=== PATIENT | female | born 1970 | race Caucasian/White ===

== ENCOUNTER 2017-05-23 14:52 | Emergency (ER) | payer OTHER ==
--- NOTE | ~2017-05-23 | CR72 ---
[facility] A Service [facility] RADIOLOGY TEXT RESULTS PATIENT: TISH GRIER LOCATION: SED : 70 UNIT #: [id number] AGE: [address]: Erik Mejia MD SEX: F ORDER DR: [id number] [place] [id number] E MR#: [id number] Acc #: [id number] NAME: TISH GRIER : 1970 SEX: F STUDY DATE/TIME: 05/23/2017 17:11 UNIT: SED ROOM: STUDY DESCRIPTION: CR Chest Single View Portable Attending Physician: Erik Mejia M.D. Ordering Physician: Erik Mejia M.D. Primary Care Physician: Claudia Bolanos M.D. MEDICAL IMAGING REPORT This report is preliminary unless electronic signature is present. EXAM Portable chest x-ray 05/23/2017. HISTORY Short of air. Claims something moving around inside abdomen, left upper side times couple weeks, left side chest lower something moving around. TECHNIQUE AP radiograph of the chest is presented. COMPARISON Comparison 12/04/2016. FINDINGS The bony structures are unremarkable. The heart and mediastinum are normal in size and contour. The lungs are well inflated bilaterally. There is no evidence of acute infectious or inflammatory disease. No pleural effusion or pneumothorax. No suspicious nodule. Some minimal linear scarring or atelectasis bilateral lower lung zones. Appearance of lungs not significantly changed from November 2015. Dictated by... Raheem Jimenez M.D. THIS IS AN ELECTRONICALLY VERIFIED REPORT Raheem Jimenez M.D. at 05/25/2017 2:44 PM MARKOK/madina TD: 05/24/2017 12:22 JOB #: [id number] MEDICAL IMAGING REPORT [facility] A Service [facility] RADIOLOGY TEXT RESULTS PATIENT: TISH GRIER LOCATION: SED : 70 UNIT #: [id number] AGE: [address]: Erik Mejia MD SEX: F ORDER DR: Page 1 of 1
--- NOTE | ~2017-05-23 | CT4 ---
[facility] A Service of [facility] RADIOLOGY TEXT RESULTS PATIENT: TISH GRIER LOCATION: SED : [birth year] UNIT #: [id number] AGE: [address]: Erik Mejia MD SEX: F ORDER DR: [id number] [address] [address] [id number] E MR#: [id number] Acc #: [id number] NAME: TISH GRIER : 1970 SEX: F STUDY DATE/TIME: 05/23/2017 17:13 UNIT: SED ROOM: STUDY DESCRIPTION: CT Abd and Pelv Wo Cont Attending Physician: Erik Mejia M.D. Ordering Physician: Erik Mejia M.D. Primary Care Physician: Claudia Bolanos M.D. MEDICAL IMAGING REPORT This report is preliminary unless electronic signature is present. EXAM CT abdomen and pelvis. HISTORY Claims "something moving around" inside abdomen, left upper side times couple weeks, left side chest lower "something moving around". TECHNIQUE CT of the abdomen and pelvis performed with administration of oral, but not intravascular contrast. Study limited in the absence of intravascular contrast. This CT exam was performed with one or more of the following radiation dose reduction techniques: automatic exposure control, adjustment of mA and/or kV according to patient size, and iterative reconstruction. FINDINGS Emphysema lung bases. Inferior heart and pericardium unremarkable. Multifocal subcentimeter hypodense foci in the liver. Both lobes are involved. Largest of these is in segment 6, measuring about 8 mm in diameter. Favored to be multiple small cysts. No clearly suspicious hepatic parenchymal abnormality is seen. The gallbladder is unremarkable. There is no biliary ductal dilatation. Spleen, pancreas, adrenal glands unremarkable. 4.3-cm right upper pole renal cyst. Kidneys, ureters, urinary bladder otherwise unremarkable. CT PELVIS: No inguinal adenopathy. Status post hysterectomy. No suspicious adnexal findings. No free fluid in the pelvis. No pelvic or retroperitoneal adenopathy. Distal esophagus, stomach, small bowel unremarkable. Appendix normal. The colon shows no acute abnormality. The aorta is normal in caliber. Bony structures show no acute-appearing abnormality. IMPRESSION [facility] A Service of [facility] RADIOLOGY TEXT RESULTS PATIENT: TISH GRIER LOCATION: SED : 70 UNIT #: [id number] AGE: [address]: Erik Mejia MD SEX: F ORDER DR: 1. There is no clearly acute abnormality seen in the abdomen or pelvis. 2. Emphysema in lung bases. 3. Multifocal subcentimeter hypodensities in the liver, largest measuring about 8 mm. Most consistent with multiple hepatic cysts. No clearly suspicious hepatic parenchymal abnormality is seen. 4. Right upper pole renal cyst measuring 4.3 cm in diameter. The kidneys and collecting systems otherwise unremarkable. 5. Gallbladder, pancreas, appendix normal. 6. Status post hysterectomy. No suspicious adnexal findings. 7. Not mentioned above, there is uncomplicated sigmoid diverticulosis. Dictated by... Raheem Jimenez M.D. THIS IS AN ELECTRONICALLY VERIFIED REPORT Raheem Jimenez M.D. at 05/25/2017 2:44 PM MIRZA/mihaela TD: 05/24/2017 12:27 JOB #: [id number] MEDICAL IMAGING REPORT Page 1 of 1
[~2017-05-23 14:52] MED LIST: FAMOTIDINE PO; NO MEDICATIONS
[2017-05-23 16:24] LABS: URINE SOURCE CLEAN CATCH
[2017-05-23 16:25] LABS: BASOPHIL% 0.3 % (0-2.5); EOSINOPHIL# 0.1 X10e3 (0-0.7); EOSINOPHIL% 0.4 % (0.0-7.0); HEMATOCRIT 40.1 % (35.0-45.0); HEMOGLOBIN 13.7 gm/dL (12.0-16.0); LYMPHOCYTE# 11.8 X10e3 (1.0-3.5); LYMPHOCYTE% 74.5 % (17.0-45.0); MEAN CELL VOLUME 90.6 FL (83-96); MEAN CORPUSCULAR HEMOGLOBIN 30.9 PG (28-34); MEAN CORPUSCULAR HGB CONC 34.1 g/dL (30-36); MEAN PLATELET VOLUME 8.4 FL (6.5-11.5); MONOCYTE# 0.4 X10e3 (0-1.0); MONOCYTE% 2.7 % (3.0-12.0); NEUTROPHIL# 3.5 X10e3 (1.5-7.1); NEUTROPHIL% 22.1 % (40-75); PLATELET COUNT 125 X10e3 (140-420); RED BLOOD COUNT 4.42 X10e (3.90-5.30); RED CELL DISTRIBUTION WIDTH 13.1 % (11.0-15.5); WHITE BLOOD COUNT 15.9 X10e3 (4.0-10.5)
[2017-05-23 16:27] LABS: DIFF IND YES; URINE APPEARANCE CLEAR; URINE BILIRUBIN NEG (NEG); URINE BLOOD NEG (NEG); URINE COLOR YELLOW; URINE GLUCOSE NEG (NORM); URINE KETONE TRACE (NEG); URINE LEUKOCYTE ESTERASE NEG (NEG); URINE NITRATE NEG (NEG); URINE PROTEIN NEG (NEG); URINE UROBILINOGEN 0.2 MG/DL (NORM)
[2017-05-23 16:32] LABS: MICRO INDICATED? NO
[2017-05-23 16:35] LABS: ALBUMIN SERUM 4.3 g/dL (3.5-5.0); ALKALINE PHOSPHATASE 46 U/L (32-92); ALT (SGPT) 13 U/L (10-40); AMYLASE 23 U/L (0-46); AST (SGOT) 16 U/L (10-42); BILIRUBIN,TOTAL 0.4 mg/dL (0.2-2.0); BLOOD UREA NITROGEN 12 mg/dL (9-23); CALCIUM SERUM 8.7 mg/dL (8.4-10.2); CARBON DIOXIDE 26 mmol/L (22-31); CHLORIDE 108 mmol/L (100-111); GLOM FILT RATE Estimated 67.5 mL/min (>60); GLUCOSE FASTING 99 mg/dL (70-110); LIPASE 25 U/L (22-51); POTASSIUM 3.6 mmol/L (3.5-5.1); PROTEIN TOTAL SERUM 6.7 g/dL (6.0-8.3); SODIUM 139 mmol/L (135-145)
[2017-05-23 16:37] LABS: AMPHETAMINE POS (NEG); BARBITURATES NEG (NEG); BENZODIAZEPINES NEG (NEG); COCAINE NEG (NEG); MARIJUANA POS (NEG); OPIATES POS (NEG); TRICYCLIC ANTIDEPRESSANTS NEG (NEG); U METHADONE NEG (NEG)
[2017-05-23 16:39] LABS: BILIRUBIN, DIRECT <0.1 mg/dL (0.0-0.2); BILIRUBIN,INDIRECT 0.3 mg/dL (0.0-0.9)
[2017-05-23 16:48] LABS: PLATELET ESTIMATE DECREASED (NORMAL); RBC NORMAL YES
[2017-05-23 16:49] LABS: SMUDGE CELLS 18 /100
== END 2017-05-23 18:48 | disposition home or self-care (01) ==
LOC: SED 14:52
PROVIDERS: Emergency Medicine
DX: K57.32 Diverticulitis of large intestine without perforation or abscess without bleeding (principal); K76.89 Other specified diseases of liver; N28.1 Cyst of kidney, acquired; F19.10 Other psychoactive substance abuse, uncomplicated; M54.9 Dorsalgia, unspecified; G89.29 Other chronic pain; Z87.891 Personal history of nicotine dependence
CPT/HCPCS: 36415; 71010; 74176; 80048; 80076; 80307; 81003; 82150; 83690; 84703; 85025; 99284